=== PATIENT | female | born 1985 | race Caucasian/White ===

== ENCOUNTER → 2020-06-19 | Day surgery (SDC) | payer OTHER ==
[~2020-06-19] MED LIST: PERCOCET 5-3251 EACH PO; SPRINTEC 28 DA1 EACH PO; ZOVIRAX800 MG PO
[2020-06-19 06:28] LABS: HCG (URINE) SCREEN NEGATIVE (NEGATIVE)
[2020-06-19 06:49] LABS: HCT 43.5 % (37.0-47.0); HGB 14.1 g/dl (12.5-16.0); MCH 29.4 pg (25.0-31.0); MCHC 32.4 g/dL (32.0-36.0); MCV 90.6 fL (78.0-100.0); MPV 9.7 fL (6.0-9.5); RBC 4.8 M/uL (4.20-5.40); RDW 12.4 % (11.5-14.0); WBC 7.7 K/uL (4.0-10.5)
[2020-06-19 06:58] LABS: ALBUMIN 3.5 g/dL (3.4-5.0); BILIRUBIN - TOTAL 0.5 mg/dL (0.2-1.0); BUN/CREAT RATIO (CALC) 23.5 RATIO; CREATININE 0.51 mg/dL (0.51-0.95); GLOBULIN (CALCULATION) 4.3 g/dL; POTASSIUM 4.2 mmol/L (3.5-5.1); TOTAL PROTEIN 7.8 g/dL (6.4-8.2)
== END | disposition home or self-care (01) ==
LOC: FAS 06:06
PROVIDERS: Orthopaedic Surgery
DX: S43.491A Other sprain of right shoulder joint, initial encounter (principal); Z79.899 Other long term (current) drug therapy; X58.XXXA Exposure to other specified factors, initial encounter
CPT/HCPCS: 36415; 80053; 84703; C1713; J0171; J0690; J0735; J1100; J1885; J2250; J2405; J2704; J2795; J7120

== ENCOUNTER 2021-08-03 09:01 | Emergency (ER) | payer OTHER ==
[~2021-08-03] VITALS: Ht 162.6 cm; Wt 108.9 kg
[2021-08-03 09:59] LABS: BILIRUBIN NEGATIVE (NEGATIVE); BLOOD 1+ Ery/uL (NEGATIVE); CLARITY CLEAR (CLEAR); COLOR YELLOW (YELLOW); GLUCOSE (U) NORMAL (NORMAL); LEUKOCYTES NEGATIVE Leu/uL (NEGATIVE); NITRITE NEGATIVE (NEGATIVE); PROTEIN NEGATIVE (NEGATIVE); SPECIFIC GRAVITY 1.025 (1.001-1.030); UROBILINOGEN 0.2 mg/dL (0.2-1.0); pH 6.5 (5.0-9.0)
[2021-08-03 10:00] LABS: BASOPHIL 1.1 % (0-2); EOSINOPHIL 1.6 % (0-5); HCT 40.7 % (37.0-47.0); HGB 13.1 g/dl (12.5-16.0); LYMPHOCYTE 20.9 % (15-48); MCH 28.4 pg (25.0-31.0); MCHC 32.2 g/dL (32.0-36.0); MCV 88.3 fL (78.0-100.0); MONOCYTE 4.5 % (0-12); MPV 9.6 fL (6.0-9.5); NEUTROPHIL 71.7 % (41-80); NRBC 0; PLT 285 K/uL (150-400); RBC 4.61 M/uL (4.20-5.40); RDW 12.8 % (11.5-14.0); WBC 8.3 K/uL (4.0-10.5)
[2021-08-03 10:26] LABS: BUN/CREAT RATIO (CALC) 11.1 RATIO; CREATININE 0.63 mg/dL (0.51-0.95); POTASSIUM 4.2 mmol/L (3.5-5.1)
== END 2021-08-03 13:40 | disposition other institution (70) ==
LOC: FER 09:01
PROVIDERS: Emergency Medicine
DX: M51.06 Intervertebral disc disorders with myelopathy, lumbar region (principal); G83.4 Cauda equina syndrome; Z20.822 Contact with and (suspected) exposure to COVID-19
CPT/HCPCS: 36415; 72158; 80048; 81001; 85025; A9579; J2270; J2405; U0002